=== PATIENT | male | born 1930 | race Caucasian/White ===

== ENCOUNTER → 2016-08-20 | Outpatient (CLI) | payer MEDICARE, BC, OTHER ==
[~2016-08-20] MED LIST: /FELO5TASR PO; ASPI81TA85 PO; AVAP150T PO; AVAP150T31 PO; FELO5TAB3 PO; FLAXOIL PO; GLIM1TAB PO; GLUC500C5 PO; METACAP3 PO; METH1CAP PO; VITAMIN B 12 PO; [UNRECOGNIZED DRUG - CODE] EXT
--- NOTE | 2016-08-20 12:26 | REP ---
Chest two views HISTORY: Coronary artery disease Comparison: 07/03/2016 The lungs are clear. The heart is normal in size. The pulmonary vasculature is normal in appearance. The bony structure is intact. IMPRESSION: No acute disease. Signed by Armando Talbert MD 08/20/2016 12:18 P
== END ==
LOC: M RAD 11:06
PROVIDERS: ATTEND Ophthalmology
DX: I25.10 Atherosclerotic heart disease of native coronary artery without angina pectoris (principal)

== ENCOUNTER → 2016-08-22 | Day surgery (SDC) | payer MEDICARE, BC, OTHER ==
[~2016-08-22] VITALS: Ht 180.3 cm; Wt 77.1 kg
[~2016-08-22] MED LIST changes: +ACETAMINOPHEN 325 MG TAB As Ordered ONE; +ACETAMINOPHEN 325 MG TAB PO PRN; +ACETYLCHOLINE OPHTH SOLN 1% 2ML (MIOCHOL-E) As Ordered ONE; +BALANCED SALT IRRIGATION SOLUTION 500ML BAG (FOR OR EYE MACHINE) As Ordered ONE; +CEFUROXIME 1MG/0.1ML INTRACAMERAL INJ As Ordered ONE; +HEALON DUET (HEALON 10MG/ML 0.55ML & HEALON ENDOCOAT 30MG/ML 0.85ML) As Ordered ONE; +LIDOCAINE 0.75%/EPINEPHRINE 0.025% IN BSS 1ML SYR INTRACAMERAL (OR ONLY) As Ordered ONE; +LR 500 ML IV SCH; +MIDAZOLAM INJ 2 MG/2 ML VIAL (J2250) As Ordered ONE; +OFLOXACIN 0.3 % (OCUFLOX) OPTH SOL 5ML OS ONE; +PHENYLEPHRINE 2.5% OPHTH SOL 2ML OS ONE; +POVIDONE-IODINE 5% OPHTH PREP SOL 30ML As Ordered ONE; +PROPARACAINE 0.5% OPHTH SOL 15ML OS ONE; +TOBRADEX OPHTH OINT 3.5 GM As Ordered ONE; +TRIMETHOBENZAMIDE 300 MG CAP PO PRN; +TROPICAMIDE 1% OPHTH SOLN 2ML OS ONE; +fentaNYL 100 MCG/2 ML INJECTION (J3010) As Ordered ONE
[2016-08-22 11:25] VITALS: BP 181/83
--- NOTE | 2016-08-23 08:01 | RO ---
DATE OF PROCEDURE: 08/22/2016 PREOPERATIVE DIAGNOSIS: Visually significant nuclear sclerotic cataract left eye. POSTOPERATIVE DIAGNOSIS: Visually significant nuclear sclerotic cataract left eye. PROCEDURE: Cataract extraction with use of phacoemulsification, and placement of intraocular lens, AU00T0, 20.0, left eye. SURGEON: Amado Quiles DO MILL STENCILER: ANESTHESIA: Local with monitored anesthesia care (MAC). COMPLICATIONS: None. POSTOPERATIVE CONDITION: Stable. INDICATION FOR SURGERY: Blurred vision left eye affecting patient's activities of daily living. DESCRIPTION OF PROCEDURE: The patient was seen in the preoperative area and properly identified. The correct operative eye was identified and marked. Attention was turned to that eye. The patient received topical antibiotics in the preoperative area. The patient then received topical dilating drops consisting of Tropicamide and Phenylephrine. The patient was then transferred to the operating room. The correct side was re-identified. The patient received topical anesthetics and antibiotics on the surface of the eye. The eye was prepped and draped in a sterile fashion. The upper and lower eyelids were isolated with Tegaderm tape, and the lids were held open with an adjustable speculum. Using a sideport blade, a paracentesis incision was made. Intraocular preservative-free lidocaine was then injected into the anterior chamber. Viscoelastic was then injected into the anterior chamber through the paracentesis. Using a 2.6 mm sharp-tipped keratome, the anterior chamber was entered via a temporal clear corneal incision. A continuous curvilinear capsulorrhexis was created with the aid of a 26g cystotome and utrata forceps. Hydrodissection was performed with balanced salt solution (BSS) on a blunt cannula until the nucleus was freely mobile. The crystalline lens was phacoemulsified and aspirated. Additional cohesive viscoelastic was placed into the capsular bag to deepen it. AU00T0, 20.0 lens was placed into the capsular bag and confirmed by visualizing the continuous curvilinear capsulorrhexis. Additional irrigation and aspiration was used to remove cortical material and remaining viscoelastic. The clear corneal incision was hydrated with BSS on a blunt cannula. The lens was well positioned. Resure sealant was placed on the temporal incision. The incisions were then tested for leaks and found to be negative. The eye was then palpated for appropriate pressure and adjusted accordingly with BSS. The eyelid speculum was carefully removed. A shield was placed on the eye. The patient tolerated the procedure well and was discharged to the recovery unit in a stable condition. RICHELLE
== END | disposition home or self-care (01) ==
LOC: M SDC 08:10
PROVIDERS: ATTEND Ophthalmology
DX: H25.12 Age-related nuclear cataract, left eye (principal); I25.10 Atherosclerotic heart disease of native coronary artery without angina pectoris; I10 Essential (primary) hypertension; E11.9 Type 2 diabetes mellitus without complications; Z79.82 Long term (current) use of aspirin; N40.0 Benign prostatic hyperplasia without lower urinary tract symptoms; Z88.0 Allergy status to penicillin; Z79.899 Other long term (current) drug therapy; M10.9 Gout, unspecified; J44.9 Chronic obstructive pulmonary disease, unspecified; F17.210 Nicotine dependence, cigarettes, uncomplicated
CPT/HCPCS: 66984; J2250; J3010; V2632

== ENCOUNTER → 2016-10-30 | Outpatient (REF) | payer MEDICARE, BC, OTHER ==
[~2016-10-30] MED LIST changes: -ACETAMINOPHEN 325 MG TAB As Ordered ONE; -ACETAMINOPHEN 325 MG TAB PO PRN; -ACETYLCHOLINE OPHTH SOLN 1% 2ML (MIOCHOL-E) As Ordered ONE; -BALANCED SALT IRRIGATION SOLUTION 500ML BAG (FOR OR EYE MACHINE) As Ordered ONE; -CEFUROXIME 1MG/0.1ML INTRACAMERAL INJ As Ordered ONE; +FELO5TAB PO; -FELO5TAB3 PO; -HEALON DUET (HEALON 10MG/ML 0.55ML & HEALON ENDOCOAT 30MG/ML 0.85ML) As Ordered ONE; -LIDOCAINE 0.75%/EPINEPHRINE 0.025% IN BSS 1ML SYR INTRACAMERAL (OR ONLY) As Ordered ONE; -LR 500 ML IV SCH; -MIDAZOLAM INJ 2 MG/2 ML VIAL (J2250) As Ordered ONE; -OFLOXACIN 0.3 % (OCUFLOX) OPTH SOL 5ML OS ONE; -PHENYLEPHRINE 2.5% OPHTH SOL 2ML OS ONE; -POVIDONE-IODINE 5% OPHTH PREP SOL 30ML As Ordered ONE; -PROPARACAINE 0.5% OPHTH SOL 15ML OS ONE; -TOBRADEX OPHTH OINT 3.5 GM As Ordered ONE; -TRIMETHOBENZAMIDE 300 MG CAP PO PRN; -TROPICAMIDE 1% OPHTH SOLN 2ML OS ONE; -fentaNYL 100 MCG/2 ML INJECTION (J3010) As Ordered ONE
[2016-10-30 13:31] LABS: CALCIUM LEVEL 8.8 MG/DL (8.8-10.2); CREATININE FOR GFR 1.41 MG/DL (0.70-1.30); GLOMERULAR FILTRATION RATE 50.9 (>35); POTASSIUM SERUM 4.4 MEQ/L (3.5-5.1)
== END ==
LOC: M LABDRAW1 11:24
PROVIDERS: ATTEND Urology
DX: D41.02 Neoplasm of uncertain behavior of left kidney (principal)

== ENCOUNTER 2017-02-23 18:58 | Inpatient (IN) | payer MEDICARE, BC, OTHER ==
[~2017-02-23] VITALS: Ht 175.3 cm; Wt 78.9 kg
[2017-02-23] MEDS ORDERED: TRAD5TAB PO (19:11)
--- NOTE | 2017-02-23 19:53 | ECGEPIP ---
Stationary ECG Study 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
[2017-02-23] MEDS ORDERED: ONDANSETRON 4MG/2ML VIAL (J2405) IV ONE ×2 (20:45→23:00)
[2017-02-23] MEDS ORDERED: MORPHINE 2 MG/ML 1ML SYRINGE IV ONE ×2 (20:45→23:00)
[2017-02-23 20:50] LABS: BASO # 0.1 10^3/uL (0.0-0.2); BASO % 0.4 % (0.0-1.0); EOS # 0.2 10^3/uL (0.0-0.50); EOS % 1.3 % (0.0-3.0); IMMATURE GRANULOCYTE % 0.4 % (0-0); LYMPH # 1.5 10^3/uL (1.5-4.5); LYMPH % 12.8 % (24.0-44.0); MEAN CORPUSCULAR HGB CONC 32.4 g/dl (32.0-36.5); MEAN CORPUSCULAR VOLUME 89.3 fl (80.0-96.0); MONO # 1.2 10^3/uL (0.0-0.8); MONO % 9.9 % (0.0-5.0); NEUTROPHILS % 75.2 % (36.0-66.0); PLATELET COUNT, AUTOMATED 544 10^3/uL (150-450); RED CELL DISTRIBUTION WIDTH 13.4 % (11.5-14.5); WHITE BLOOD COUNT 11.9 10^3/uL (4.0-10.0)
[2017-02-23 21:00] LABS: INR 1.09
[2017-02-23] MEDS: HumaLOG INSULIN (NovoLOG) PER UNIT SC SCH (21:00)
[2017-02-23 21:04] LABS: ALBUMIN 2.6 GM/DL (3.2-5.2); ALKALINE PHOSPHATASE 87 U/L (45-117); ALT/SGPT 27 U/L (12-78); ANION GAP 3 MEQ/L (8-16); AST/SGOT 16 U/L (7-37); BILIRUBIN,DIRECT < 0.1 MG/DL (0.0-0.2); BILIRUBIN,TOTAL 0.3 MG/DL (0.2-1.0); BLOOD UREA NITROGEN 12 MG/DL (7-18); CALCIUM LEVEL 8.2 MG/DL (8.8-10.2); CARBON DIOXIDE LEVEL 32 MEQ/L (21-32); CHLORIDE LEVEL 99 MEQ/L (98-107); CREATININE FOR GFR 1.57 MG/DL (0.70-1.30); GLOMERULAR FILTRATION RATE 44.9 (>35); GLUCOSE, FASTING 104 MG/DL (83-110); POTASSIUM SERUM 3.7 MEQ/L (3.5-5.1); SODIUM LEVEL 134 MEQ/L (136-145); TOTAL PROTEIN 7.8 GM/DL (6.4-8.2)
[2017-02-23] MEDS ORDERED: ISOVUE-370 76% 100ML VIAL (Q9967) As Ordered ONE (21:09)
[2017-02-23] MEDS ORDERED: CIPROFLOXACIN 400 MG in APPROPRIATE DILUENT 1 EA IV ONE (22:15)
[2017-02-23] MEDS ORDERED: metroNIDAZOLE 500 MG in APPROPRIATE DILUENT 1 EA IV ONE (22:15)
[2017-02-23] MEDS ORDERED: NICOTINE 21MG/24HR 1 EA TRANSDERMAL TD ONE (23:00)
[2017-02-24] MEDS ORDERED: ASPI1TAB PO
[2017-02-24] MEDS: NS 1,000 ML IV SCH ×3 (00:06→22:00)
[2017-02-24] MEDS ORDERED: MORPHINE 2 MG/ML 1ML SYRINGE IV PRN (00:15)
[2017-02-24] MEDS ORDERED: ONDANSETRON 4MG/2ML VIAL (J2405) IV PRN (00:15)
[2017-02-24] MEDS ORDERED: DEXTROSE 50% 50 ML SYRINGE IV PRN (00:15)
[2017-02-24] MEDS ORDERED: ACETAMINOPHEN TAB 650MG DOSE (2X325MG) PO PRN (00:15)
[2017-02-24] MEDS ORDERED: GLUCOSE 4 GM CHEW TABLET PO PRN (00:15)
[2017-02-24] MEDS ORDERED: GLUCAGON FOR INJ 1 MG VIAL (J1610) SC PRN (00:15)
[2017-02-24] MEDS: PERCOCET 5MG/325MG TAB PO PRN ×5 (01:46→22:00)
[2017-02-24 01:50] VITALS: BP 194/80
[2017-02-24 06:00] VITALS: BP 147/67
--- NOTE | 2017-02-24 07:02 | HPE ---
DATE OF ADMISSION: 02/24/2017 PRIMARY CARE PROVIDER: Dr. Miller ATTENDING PHYSICIAN: Denys Leach MD CHIEF COMPLAINT: Sudden onset of left lower quadrant abdominal pain. HISTORY OF PRESENT ILLNESS: The patient is an 86-year-old white male with several chronic medical conditions who presented to the emergency room for evaluation of sudden onset of left lower quadrant abdominal pain. The history is provided by himself, but he is a poor historian. Also his daughter and his is with him in the emergency room today. Per the family, about two weeks ago he developed right upper quadrant abdominal pain. He went to the [facility] and had a test done which showed he had a gallbladder stone with cholecystitis. His primary care physician referred him to see Dr. Tom on 03/05/2017. Since his pain resolved spontaneously, so he is waiting to see Dr. Tom. Today, in the afternoon, sudden he said he developed pain in his left lower quadrant abdomen. The pain is a persistent pain, about 9/10 in severity, no radiation, any movement makes the pain worse, but denies nausea, vomiting, denies diarrhea or rectal bleeding, no fever, and no chills, and decided to come to the emergency room for further evaluation. In the ER, he underwent CT of the abdomen and pelvis, which demonstrated acute sigmoid diverticulitis, IV antibiotic was started. Meanwhile, the medicine service was called for admission. REVIEW OF SYSTEMS: Denies fever. No chills. No headache. No blurry vision. No shortness of breath. No chest pain. No nausea, no vomiting. Positive left lower quadrant abdominal pain. No diarrhea. No tingling, numbness or weakness in the arms and lower extremities. All other systems reviewed and negative. PAST MEDICAL HISTORY: 1. Type 2 diabetes. 2. T cell lymphoma. 3. Coronary artery disease status post stenting. 4. Peripheral vascular disease bilateral lower extremity stenting. 5. Right kidney renal cell carcinoma, status post partial nephrectomy. 6. Hypertension. 7. Dyslipidemia. 8. Chronic obstructive pulmonary disease (COPD). Is not on home oxygen supplementation. 9. Peripheral neuropathy. PAST SURGICAL HISTORY: 1. Right partial nephrectomy for renal cell carcinoma. 2. Bilateral artery surgery. 3. Cardiac stent. 4. Bilateral lower extremity stenting. SOCIAL HISTORY: Tobacco use, which is ongoing. He still smokes a few cigarettes a day. No alcohol abuse. No illicit drug abuse. He lives with his . He is a full code. FAMILY HISTORY: Positive for cancer as well as coronary artery disease. ALLERGIES: 1. PENICILLIN. MEDICATIONS: Reviewed. PHYSICAL EXAMINATION: VITALS: Temperature 97.7, heart rate 86, respiratory rate 16, blood pressure 190/84, oxygen saturation 97% on room air. GENERAL: He is awake, alert and oriented times three, in no acute distress. HEENT: Atraumatic. Pupils equal, round, reactive to light. No jaundice. Extraocular muscles intact. Ears, nose and throat normal. Mouth mucous not dry. NECK: No jugular venous distention (JVD). No bruits. LUNGS: Clear, but decreased breath sounds. No wheezing, no crackles. HEART: S1, S2 regular, no murmurs. ABDOMEN: Soft, bowel sounds positive. Positive tenderness in the left lower quadrant, but no rebound. LOWER EXTREMITIES: No edema in bilateral lower extremities. NEUROLOGIC: Nonfocal. SKIN: No rash. PSYCHOLOGIC: No acute psychosis. DIAGNOSTIC LABORATORY STUDIES: CBC and differential WBC 11.9, hemoglobin and hematocrit 11.9/36.7, platelets 544, sodium 134, potassium 3.7, BUN 12, creatinine 1.5, glucose 104. CT of the abdomen and pelvis reviewed. IMPRESSION: 1. Acute sigmoid diverticulitis. 2. Gallbladder stone with possible cholecystitis. 3. Hypertension. 4. Type 2 diabetes. 5. Coronary artery disease. 6. Chronic kidney disease stage III. PLAN: Patient will be admitted to the medicine floor. Will treat with IV Cipro and Flagyl for acute diverticulitis. Currently he is asymptomatic and he can followup with Dr. Tom as an outpatient. Otherwise, will continue his home medications. Will keep his nothing by mouth and on gentle IV hydration. Will start him on sliding scale for diabetes and heparin will be used for deep vein thrombosis (DVT) prophylaxis.
[2017-02-24 07:06] LABS: BASO % 0.3 % (0.0-1.0); EOS # 0.1 10^3/uL (0.0-0.50); EOS % 0.7 % (0.0-3.0); IMMATURE GRANULOCYTE % 0.6 % (0-0); LYMPH # 1.3 10^3/uL (1.5-4.5); LYMPH % 10.6 % (24.0-44.0); MEAN CORPUSCULAR HEMOGLOBIN 30.6 pg (27.0-33.0); MEAN CORPUSCULAR HGB CONC 34.3 g/dl (32.0-36.5); MEAN CORPUSCULAR VOLUME 89.3 fl (80.0-96.0); MONO % 8.2 % (0.0-5.0); NEUTROPHILS # 9.4 10^3/uL (1.8-7.7); NEUTROPHILS % 79.6 % (36.0-66.0); PLATELET COUNT, AUTOMATED 469 10^3/uL (150-450); RED CELL DISTRIBUTION WIDTH 13.9 % (11.5-14.5); WHITE BLOOD COUNT 11.8 10^3/uL (4.0-10.0)
--- NOTE | 2017-02-24 07:26 | REPUSA ---
CT of the abdomen and pelvis with contrast Clinical statement: Pain. Technique: Multiple axial CT images were obtained from the base of the lungs through the floor of the pelvis utilizing 5 mm axial slices after administration of oral and nonionic intravenous contrast. C oronal and sagittal reconstructions were also obtained. Comparison: 09/28/2011. Findings: Chest: The visualized lung bases are clear. Abdomen: The liver, spleen, pancreas, and adrenal glands are unremarkable. The gallbladder is distend ed with numerous gallstones noted. There is severe gallbladder wall thickening measuring up to 1 cm. Bilateral simple renal cysts are noted. There is a large left posterior pericapsular fluid collection measuring 3.3 x 6.3 cm. The aorta demonstrates severe atherosclerosis with extensive plaque. There i s no evidence of aneurysm or dissection however. There is no evidence of abdominal lymphadenopathy or ascites. Pelvis: There is focal bowel wall thickening in the sigmoid colon consistent with acute sigmoid diver ticulitis. Surrounding inflammation and mesenteric stranding is noted. The urinary bladder is within normal limits. The prostate remained enlarged but stable. There is no evidence of pelvic lymphadenopa thy or ascites. Bones: There are no suspicious osseous abnormalities seen. Severe multilevel degenerative disc diseas e is noted. There is moderate stable bilateral osteoarthritis of the hip joints. Impression: 1. Acute sigmoid diverticulitis. No evidence of abscess or perforation. No evidence of bowel obstruct ion. 2. Cholelithiasis. Gallbladder wall thickening noted. The findings are suspicious for acute/chronic c holecystitis. Ultrasound may be helpful for further evaluation. 3. Large left posterior pericapsular fluid collection, which could represent an old hematoma or serom a. Ultrasound may be helpful for further evaluation. No evidence of hydronephrosis or nephrolithiasis . Numerous bilateral simple renal cysts. 4. Severe atherosclerotic disease of the abdominal aorta. No evidence of aneurysm or dissection. 5. Spondylosis of the lumbar spine. Degenerative changes of the hip joints.
[2017-02-24] MEDS: HumaLOG INSULIN (NovoLOG) PER UNIT SC SCH ×4 (07:30→21:00)
[2017-02-24] MEDS ORDERED: GLIMEPIRIDE 1 MG TABLET PO SCH (07:30)
[2017-02-24 07:49] LABS: ALBUMIN 2.4 GM/DL (3.2-5.2); ALBUMIN/GLOBULIN RATIO 0.51 (1.00-1.93); BILIRUBIN,TOTAL 0.3 MG/DL (0.2-1.0); CREATININE FOR GFR 1.59 MG/DL (0.70-1.30); GLOMERULAR FILTRATION RATE 44.3 (>35); POTASSIUM SERUM 4.1 MEQ/L (3.5-5.1); TOTAL PROTEIN 7.1 GM/DL (6.4-8.2)
[2017-02-24] MEDS: metroNIDAZOLE 500 MG in APPROPRIATE DILUENT 1 EA IV SCH ×2 (08:29→16:05)
[2017-02-24] MEDS: ENOXAPARIN 30 MG/0.3 ML SYR (J1650) SC SCH (08:29)
[2017-02-24] MEDS: ASPIRIN 81 MG ENTERIC TAB PO SCH (08:29)
[2017-02-24] MEDS: IRBESARTAN 150 MG TAB PO SCH (08:29)
[2017-02-24] MEDS ORDERED: LORazepam 0.5 MG TAB PO PRN (10:45)
[2017-02-24] MEDS: NICOTINE 21MG/24HR 1 EA TRANSDERMAL TD SCH (10:53)
[2017-02-24] MEDS: CIPROFLOXACIN 400 MG in APPROPRIATE DILUENT 1 EA IV SCH ×2 (11:30→22:03)
[2017-02-24 22:00] VITALS: BP 162/72
[2017-02-25] MEDS: metroNIDAZOLE 500 MG in APPROPRIATE DILUENT 1 EA IV SCH ×3 (00:27→15:37)
[2017-02-25] MEDS: NS 1,000 ML IV SCH ×2 (05:22→18:11)
[2017-02-25] MEDS: PERCOCET 5MG/325MG TAB PO PRN ×2 (05:22→15:37)
[2017-02-25 06:00] VITALS: BP 167/73
[2017-02-25] MEDS: HumaLOG INSULIN (NovoLOG) PER UNIT SC SCH ×4 (07:30→21:00)
[2017-02-25 08:17] LABS: BASO % 0.4 % (0.0-1.0); EOS # 0.2 10^3/uL (0.0-0.50); EOS % 2.7 % (0.0-3.0); IMMATURE GRANULOCYTE % 0.4 % (0-0); LYMPH # 1.3 10^3/uL (1.5-4.5); LYMPH % 16.6 % (24.0-44.0); MEAN CORPUSCULAR HEMOGLOBIN 29.6 pg (27.0-33.0); MEAN CORPUSCULAR VOLUME 89.6 fl (80.0-96.0); MONO # 0.7 10^3/uL (0.0-0.8); MONO % 9.2 % (0.0-5.0); NEUTROPHILS # 5.3 10^3/uL (1.8-7.7); NEUTROPHILS % 70.7 % (36.0-66.0); PLATELET COUNT, AUTOMATED 410 10^3/uL (150-450); RED CELL DISTRIBUTION WIDTH 13.9 % (11.5-14.5); WHITE BLOOD COUNT 7.5 10^3/uL (4.0-10.0)
[2017-02-25 08:43] LABS: ALBUMIN 2.2 GM/DL (3.2-5.2); ALBUMIN/GLOBULIN RATIO 0.52 (1.00-1.93); BILIRUBIN,TOTAL 0.2 MG/DL (0.2-1.0); CALCIUM LEVEL 7.6 MG/DL (8.8-10.2); CREATININE FOR GFR 1.57 MG/DL (0.70-1.30); GLOMERULAR FILTRATION RATE 44.9 (>35); MAGNESIUM LEVEL 1.9 MG/DL (1.8-2.4); TOTAL PROTEIN 6.4 GM/DL (6.4-8.2)
[2017-02-25] MEDS: NICOTINE 21MG/24HR 1 EA TRANSDERMAL TD SCH (09:21)
[2017-02-25] MEDS: IRBESARTAN 150 MG TAB PO SCH (09:21)
[2017-02-25] MEDS: ENOXAPARIN 30 MG/0.3 ML SYR (J1650) SC SCH (09:22)
[2017-02-25] MEDS: ASPIRIN 81 MG ENTERIC TAB PO SCH (09:22)
[2017-02-25] MEDS: CIPROFLOXACIN 400 MG in APPROPRIATE DILUENT 1 EA IV SCH ×2 (10:32→23:26)
[2017-02-25] MEDS ORDERED: IPRATROPIUM 0.5MG/ALBUTEROL 2.5MG INH SOL UD 3ML (DUONEB)(J7620) NEB PRN (13:15)
--- NOTE | 2017-02-25 13:17 | IPNPDOC ---
Text Note Date of Service The patient was seen on 02/25/17. NOTE Subjective: Patient is an 86 year old male with a PMHx of T Cell lymphoma, HTN, DM2, CAD s/p stent, PVD s/p b/l stent, DLP, COPD, Renal cell CA s/p R nephrectomy, Neuropathy who presented to the ER with complaints of LLQ abdominal pain. Patient recently had RUQ pain that was found to be 22/ cholecystitis, he was referred to Dr. Tom. He received a CT in the ER that revealed he had sigmoid diverticulitis. He was admitted to the hospitalist service and IV antibiotics were started. Patient was seen and examined at the bedside. Currently he notes that the pain is better controlled, although still present. He denies any nausea or vomiting. We will advance his diet today and see how he is tolerating it throughout the day. Objective: Vitals (See below) General: Lying in bed, no acute distress, comfortable, AAOx3 HEENT: NC, AT CVS: RRR, +S1S2 Lungs: Fair air entry b/l, -w/r/r Abdomen: Soft, ND, Mild tenderness at LLQ Extremities: - Edema, - Calf tenderness Assessment and plan: LLQ pain - likely 2/2 sigmoid diverticulitis - Presented with acute abdominal pain - Clinically has improvement in pain, although tenderness still persists - WBC count improved; Remains afebrile - CT abdomen / pelvis 02/23: acute sigmoid diverticulitis, no abscess / perforation, cholelithiasis, GB wall thickening, acute / chronic cholecystitis - c/w Ciprofloxacin and Flagyl (Day #2) - Will advance diet - c/w Pain control medications for symptomatic relief s/p RUQ pain - likely 2/2 chronic cholecystitis - Has outpatient follow up with Dr. Tom for cholecystectomy T Cell lymphoma HTN - c/w Irbesartan DM2 - c/w ISS CAD s/p stent - c/w ASA PVD s/p b/l stent - c/w ASA DLP - not on any medications COPD - no evidence of exacerbation - will start duoneb PRN Nicotine dependence - c/w Nicotine patch Renal cell CA s/p R nephrectomy Neuropathy DVT prophylaxis - c/w Lovenox VS,Fishbone, I+O VS, Fishbone, I+O Laboratory Tests 02/25/17 08:02 Red Blood Count 3.28 L, Mean Corpuscular Volume 89.6, Mean Corpuscular Hemoglobin 29.6, Mean Corpuscular Hemoglobin Concent 33.0, Red Cell Distribution Width 13.9, Neutrophils (%) (Auto) 70.7 H, Lymphocytes (%) (Auto) 16.6 L, Monocytes (%) (Auto) 9.2 H, Eosinophils (%) (Auto) 2.7, Basophils (%) ( Auto) 0.4, Neutrophils # (Auto) 5.3, Lymphocytes # (Auto) 1.3 L, Monocytes # ( Auto) 0.7, Eosinophils # (Auto) 0.2, Basophils # (Auto) 0.0, Calcium Level 7.6 L , Aspartate Amino Transf (AST/SGOT) 13, Alanine Aminotransferase (ALT/SGPT) 19, Alkaline Phosphatase 66, Total Bilirubin 0.2, Total Protein 6.4, Albumin 2.2 L Vital Signs Date Time Temp Pulse Resp B/P (MAP) Pulse Ox O2 Delivery O2 Flow Rate FiO2 02/25/17 09:21 167/73 02/25/17 06:00 97.7 68 20 99 Room Air I&O- Last 24 Hours up to 6 AM 02/26/17 06:00 Intake Total 1700 ml Balance 1700 ml LINDA CLINTON MD Feb 25, 2017 13:17
[2017-02-25 14:00] VITALS: BP 147/73
[2017-02-25 22:00] VITALS: BP 161/66
[2017-02-26] MEDS: metroNIDAZOLE 500 MG in APPROPRIATE DILUENT 1 EA IV SCH ×2 (00:31→09:52)
[2017-02-26] MEDS: NS 1,000 ML IV SCH ×2 (02:06→11:58)
[2017-02-26] MEDS ORDERED: amLODIPine 5 MG TAB PO ONE (05:30)
[2017-02-26 06:00] VITALS: BP 185/85
[2017-02-26 06:34] VITALS: BP 176/78
--- NOTE | 2017-02-26 06:49 | ECGEPIP ---
Stationary ECG Study [facility] Test Date: 2017-02-26 Pat Name: KIRK RENTERIA Department: Room: [place] [address] Gender: M Montessori Toddler Teacher: LOWELL : 1930 Requested By: GLADYS Rico Order Number: [id number] Reading MD: Binh Hidalgo Measurements Intervals [place] Rate: 69 P: 44 SC: 243 QRS: -9 QRSD: 115 T: 40 QT: 410 QTc: 442 Interpretive Statements SINUS RHYTHM WITH FIRST DEGREE AV BLOCK MODERATE INTRAVENTRICULAR CONDUCTION DELAY Nonspecific ST-T wave abnormalities Electronically Signed On 02-26-2017 6:49:04 EST by Binh Hidalgo
[2017-02-26 06:57] LABS: BASO # 0.1 10^3/uL (0.0-0.2); EOS # 0.1 10^3/uL (0.0-0.50); EOS % 2.3 % (0.0-3.0); IMMATURE GRANULOCYTE % 0.5 % (0-0); LYMPH # 1.2 10^3/uL (1.5-4.5); LYMPH % 18.8 % (24.0-44.0); MEAN CORPUSCULAR HGB CONC 32.9 g/dl (32.0-36.5); MONO # 0.5 10^3/uL (0.0-0.8); MONO % 8.7 % (0.0-5.0); NEUTROPHILS # 4.3 10^3/uL (1.8-7.7); NEUTROPHILS % 68.7 % (36.0-66.0); PLATELET COUNT, AUTOMATED 461 10^3/uL (150-450); RED CELL DISTRIBUTION WIDTH 13.8 % (11.5-14.5); WHITE BLOOD COUNT 6.2 10^3/uL (4.0-10.0)
[2017-02-26 07:08] LABS: ALBUMIN 2.3 GM/DL (3.2-5.2); ALBUMIN/GLOBULIN RATIO 0.48 (1.00-1.93); BILIRUBIN,TOTAL 0.2 MG/DL (0.2-1.0); CALCIUM LEVEL 7.7 MG/DL (8.8-10.2); CREATININE FOR GFR 1.63 MG/DL (0.70-1.30); POTASSIUM SERUM 3.9 MEQ/L (3.5-5.1); TOTAL PROTEIN 7.1 GM/DL (6.4-8.2)
[2017-02-26] MEDS: HumaLOG INSULIN (NovoLOG) PER UNIT SC SCH ×2 (07:30→11:57)
[2017-02-26] MEDS ORDERED: CIPR500T19 PO (08:20)
[2017-02-26] MEDS ORDERED: FLAG500T PO (08:20)
[2017-02-26] MEDS ORDERED: amLODIPine 10 MG TAB PO SCH (09:00)
[2017-02-26] MEDS: NICOTINE 21MG/24HR 1 EA TRANSDERMAL TD SCH (09:52)
[2017-02-26] MEDS: IRBESARTAN 150 MG TAB PO SCH (09:53)
[2017-02-26] MEDS: ASPIRIN 81 MG ENTERIC TAB PO SCH (09:53)
[2017-02-26 09:54] VITALS: BP 155/76
[2017-02-26] MEDS: ENOXAPARIN 30 MG/0.3 ML SYR (J1650) SC SCH (09:54)
[2017-02-26] MEDS: CIPROFLOXACIN 400 MG in APPROPRIATE DILUENT 1 EA IV SCH (11:00)
--- NOTE | 2017-02-26 16:23 | DSES ---
DATE OF ADMISSION: 02/24/2017 DATE OF DISCHARGE: 02/26/2017 ATTENDING PHYSICIAN: Jefferson Lema MD / Denys Leach MD PRIMARY CARE PHYSICIAN: Dr. Miller / Dr. Jordan Lema REFERRING PHYSICIAN: None. CONSULTING PHYSICIAN: None. CONDITION ON DISCHARGE: Stable. FINAL DIAGNOSIS: Acute diverticulitis. PROCEDURES: None. HISTORY OF PRESENT ILLNESS: The patient is an 86-year-old male with a past medical history of T-cell lymphoma, hypertension, diabetes mellitus type 2, coronary artery disease status post stent, peripheral vascular disease status post bilateral stents, dyslipidemia, chronic obstructive pulmonary disease (COPD), renal cell carcinoma status post right nephrectomy and neuropathy, who presented to the emergency room with complaints of left lower quadrant abdominal pain. The patient originally had right upper quadrant abdominal pain found to be secondary to cholecystitis. He was referred to Dr. Tom. In the emergency room, patient received a CT scan that revealed that he had sigmoid diverticulitis. He was admitted to the hospitalist service for IV antibiotics. HOSPITAL COURSE: 1. Left lower quadrant abdominal pain, likely secondary to sigmoid diverticulitis. Presented with acute abdominal pain. Clinically, he has improvement in his pain, although the tenderness was there initially, his abdominal pain has resolved throughout the hospital course. His white blood cell count has improved. He has remained afebrile. CT of the abdomen and pelvis, done on 02/23/2017, revealed acute sigmoid diverticulitis, no abscess or perforation, cholelithiasis was present, gallbladder wall thickening was noted suggestive of acute/chronic cholecystitis. Patient does not have any right upper quadrant pain on physical exam. Patient was put on Cipro and Flagyl, today marked day #3, he will be continued with these medications as an outpatient for completion of antibiotic course. Patient's diet has been advanced fully and he has not been having any nausea, vomiting, or diarrhea. Patient's pain medications were initially instituted, but have not been required throughout the hospital course. 2. Status post right upper quadrant pain, likely secondary to chronic cholecystitis. Has outpatient followup with Dr. Tom for a cholecystectomy. 3. T cell lymphoma. 4. Hypertension. Continue with irbesartan. 5. Diabetes mellitus type 2. Continue with sliding scale. 6. Coronary artery disease status post stent. Continue with aspirin. 7. Peripheral vascular disease status post bilateral stents. Continue with aspirin. 8. Dyslipidemia. Not on any medication. 9. COPD. No evidence of exacerbation. Continue with DuoNeb as needed. 10. Nicotine dependence. Continue with nicotine patch. 11. Renal cell carcinoma status post right nephrectomy. 12. Neuropathy. 13. Deep venous thrombosis (DVT) prophylaxis. Continue with Lovenox. DISCHARGE MEDICATIONS: Patient has been discharged home with the following medication list: - ciprofloxacin 500 mg by mouth twice a day for the remainder of antibiotic course - metronidazole 500 mg by mouth every 8 hours for the remainder of antibiotic course - aspirin 162 mg by mouth daily - felodipine 5 mg by mouth nightly - glimepiride 1 mg by mouth daily - irbesartan 150 mg by mouth daily - linagliptin 5 mg by mouth every evening - Metanx one capsule by mouth every evening DISCHARGE INSTRUCTIONS: Patient has been advised to followup with his primary care provider who is Dr. Miller / Dr. Jordan Lema within the next 7 days. He has been advised to remain compliant with treatment plan and medications and to return to the emergency room if he experiences any problems. He has been advised to followup with his surgeon, Dr. Tom, within the next 7 days. TIME SPENT ON DISCHARGE: Greater than 35 minutes.
== END 2017-02-26 12:48 | disposition home or self-care (01) | DRG 392 ==
LOC: M ED 18:58 → M ED INP 02-24 00:06 → M MS5PR 02-24 01:50
PROVIDERS: ADMIT Hospitalist; ATTEND Internal Medicine
DX: K57.32 Diverticulitis of large intestine without perforation or abscess without bleeding (principal); K80.10 Calculus of gallbladder with chronic cholecystitis without obstruction; C91.50 Adult T-cell lymphoma/leukemia (HTLV-1-associated) not having achieved remission; I12.9 Hypertensive chronic kidney disease with stage 1 through stage 4 chronic kidney disease, or unspecified chronic kidney disease; N18.3 Chronic kidney disease, stage 3 (moderate); E11.9 Type 2 diabetes mellitus without complications; I73.9 Peripheral vascular disease, unspecified; E78.5 Hyperlipidemia, unspecified; J44.9 Chronic obstructive pulmonary disease, unspecified; F17.210 Nicotine dependence, cigarettes, uncomplicated; Z79.899 Other long term (current) drug therapy; Z79.82 Long term (current) use of aspirin; Z85.528 Personal history of other malignant neoplasm of kidney; G62.9 Polyneuropathy, unspecified

== ENCOUNTER → 2017-05-06 | Outpatient (REF) | payer MEDICARE, OTHER ==
[2017-05-06 13:16] LABS: ANION GAP 2 MEQ/L (8-16); BLOOD UREA NITROGEN 23 MG/DL (7-18); CALCIUM LEVEL 8.5 MG/DL (8.8-10.2); CARBON DIOXIDE LEVEL 32 MEQ/L (21-32); CHLORIDE LEVEL 103 MEQ/L (98-107); CREATININE FOR GFR 1.55 MG/DL (0.70-1.30); GLOMERULAR FILTRATION RATE 45.6 (>35); GLUCOSE, FASTING 131 MG/DL (70-100); POTASSIUM SERUM 4.6 MEQ/L (3.5-5.1); SODIUM LEVEL 137 MEQ/L (136-145)
== END ==
LOC: M LABDRAW1 12:14
DX: D41.02 Neoplasm of uncertain behavior of left kidney (principal)
CPT/HCPCS: 80048

== ENCOUNTER → 2017-09-17 | Outpatient (REF) | payer MEDICARE, OTHER | LOC: M LAB REF 16:50 | DX: L08.9 Local infection of the skin and subcutaneous tissue, unspecified (principal) | CPT/HCPCS: 87070 ==

== ENCOUNTER 2017-09-21 02:37 | Observation (INO) | payer MEDICARE, BC, OTHER ==
[2017-09-21] MEDS: ONDANSETRON 4MG/2ML VIAL (J2405) IV (03:15)
[2017-09-21] MEDS: NS 500 ML IV (03:15)
[2017-09-21 03:29] LABS: BASO % 0.3 % (0.0-1.0); EOS # 0.1 10^3/uL (0.0-0.50); EOS % 0.5 % (0.0-3.0); HEMATOCRIT 35.3 % (42.0-52.0); IMMATURE GRANULOCYTE % 0.4 % (0-3.0); LYMPH # 0.3 10^3/uL (1.5-4.5); MEAN CORPUSCULAR HEMOGLOBIN 30.8 pg (27.0-33.0); MEAN CORPUSCULAR VOLUME 90.7 fl (80.0-96.0); MONO # 0.4 10^3/uL (0.0-0.8); MONO % 4.6 % (0.0-5.0); NEUTROPHILS # 8.8 10^3/uL (1.8-7.7); NEUTROPHILS % 91.2 % (36.0-66.0); PLATELET COUNT, AUTOMATED 272 10^3/uL (150-450); RED BLOOD COUNT 3.89 10^6/uL (4.30-6.10); RED CELL DISTRIBUTION WIDTH 13.6 % (11.5-14.5); WHITE BLOOD COUNT 9.6 10^3/uL (4.0-10.0)
[2017-09-21] MEDS: fentaNYL 100 MCG/2 ML INJECTION (J3010) IV (03:35)
[2017-09-21 03:48] LABS: POSITIVE DIFF POS FLAG
[2017-09-21 03:50] LABS: PROTHROMBIN TIME 13.3 SECONDS (12.1-14.4)
[2017-09-21 03:51] LABS: PARTIAL THROMBOPLASTIN TIME 36.4 SECONDS (25.4-37.6)
[2017-09-21 03:52] LABS: LACTIC ACID SEPSIS PROTOCOL 1.2 MMOL/L (0.4-2.0)
[2017-09-21 03:54] LABS: ALBUMIN 3.1 GM/DL (3.2-5.2); ALKALINE PHOSPHATASE 86 U/L (45-117); ALT/SGPT 30 U/L (12-78); ANION GAP 9 MEQ/L (8-16); AST/SGOT 21 U/L (7-37); BILIRUBIN,DIRECT 0.1 MG/DL (0.0-0.2); BILIRUBIN,TOTAL 0.4 MG/DL (0.2-1.0); BLOOD UREA NITROGEN 32 MG/DL (7-18); CALCIUM LEVEL 7.4 MG/DL (8.8-10.2); CARBON DIOXIDE LEVEL 23 MEQ/L (21-32); CHLORIDE LEVEL 106 MEQ/L (98-107); CK-MB VALUE MASS 3.2 NG/ML (<3.6); CPK CREATINE PHOSPHOKINASE 286 U/L (39-308); CREATININE FOR GFR 2.15 MG/DL (0.70-1.30); GLOMERULAR FILTRATION RATE 31.3 (>35); GLUCOSE, FASTING 145 MG/DL (70-100); LIPASE 188 U/L (73-393); MB/CK RELATIVE INDEX 1.11 (< OR =4); POTASSIUM SERUM 3.6 MEQ/L (3.5-5.1); SODIUM LEVEL 138 MEQ/L (136-145); TOTAL PROTEIN 7.5 GM/DL (6.4-8.2); TROPONIN I 0.02 NG/ML (< 0.10)
[2017-09-21] MEDS: NS 1,000 ML IV ×3 (07:00→17:12)
[2017-09-21] MEDS: HYDROMORPHONE HCL 0.5 MG/ 0.5 ML SYRINGE (J1170 PER 1) IV ×2 (07:06→08:12)
[2017-09-21 08:45] LABS: CK-MB VALUE MASS 3.1 NG/ML (<3.6); CPK CREATINE PHOSPHOKINASE 233 U/L (39-308); MB/CK RELATIVE INDEX 1.33 (< OR =4); TROPONIN I 0.05 NG/ML (< 0.10)
[2017-09-21 12:49] LABS: ANION GAP 7 MEQ/L (8-16); BLOOD UREA NITROGEN 30 MG/DL (7-18); CALCIUM LEVEL 7.1 MG/DL (8.8-10.2); CARBON DIOXIDE LEVEL 24 MEQ/L (21-32); CHLORIDE LEVEL 109 MEQ/L (98-107); CREATININE FOR GFR 2.08 MG/DL (0.70-1.30); GLOMERULAR FILTRATION RATE 32.5 (>35); GLUCOSE, FASTING 157 MG/DL (70-100); POTASSIUM SERUM 4.2 MEQ/L (3.5-5.1); SODIUM LEVEL 140 MEQ/L (136-145)
[2017-09-21] MEDS ORDERED: ONDANSETRON 4MG/2ML VIAL (J2405) IV (13:30)
[2017-09-21] MEDS ORDERED: ACETAMINOPHEN TAB 650MG DOSE (2X325MG) PO (13:30)
[2017-09-21] MEDS ORDERED: GLUCAGON FOR INJ 1 MG VIAL (J1610) SC (13:30)
[2017-09-21] MEDS ORDERED: PERCOCET 5MG/325MG TAB PO (13:30)
[2017-09-21] MEDS ORDERED: DEXTROSE 50% 50 ML SYRINGE IV (13:30)
[2017-09-21] MEDS ORDERED: GLUCOSE 4 GM CHEW TABLET PO (13:30)
[2017-09-21] MEDS: SENOKOT S TAB PO (14:00)
[2017-09-21 14:31] LABS: BEDSIDE GLUCOSE 156 MG/DL (83-110)
[2017-09-21] MEDS: PERCOCET 5MG/325MG TAB PO (15:39)
[2017-09-21] MEDS: LORazepam 0.5 MG TAB PO (16:10)
[2017-09-21] MEDS: IPRATROPIUM 0.5MG/ALBUTEROL 2.5MG INH SOL UD 3ML (DUONEB)(J7620) NEB (16:13)
[2017-09-21 16:43] LABS: TROPONIN I 0.49 NG/ML (< 0.10)
[2017-09-21 16:44] LABS: CK-MB VALUE MASS 5.6 NG/ML (<3.6); CPK CREATINE PHOSPHOKINASE 268 U/L (39-308); MB/CK RELATIVE INDEX 2.08 (< OR =4)
[2017-09-21] MEDS: ASPIRIN 81 MG ENTERIC TAB PO (17:07)
[2017-09-21] MEDS: amLODIPine 5 MG TAB PO (17:10)
[2017-09-21] MEDS: HEPARIN SOD (PORCINE) 5000 UNITS/ML VIAL SC (17:10)
[2017-09-21] MEDS ORDERED: NITROGLYCERIN 0.4 MG SUBL TABLET SL (18:00)
[2017-09-21] MEDS ORDERED: HEPARIN SOD (PORCINE) 5000 UNITS/ML VIAL IV (18:00)
[2017-09-21 18:26] LABS: PARTIAL THROMBOPLASTIN TIME 39.5 SECONDS (25.4-37.6)
[2017-09-21] MEDS: HEPARIN DRIP 25,000 UNITS in APPROPRIATE DILUENT 1 EA IV (18:28)
[2017-09-21 18:31] LABS: BEDSIDE GLUCOSE 224 MG/DL (83-110)
[2017-09-21] MEDS: HumaLOG INSULIN (NovoLOG) PER UNIT SC (18:41)
[2017-09-21] MEDS ORDERED: HumaLOG INSULIN (NovoLOG) PER UNIT SC (21:00)
== END 2017-09-21 19:31 | disposition other institution (70) ==
LOC: M ED 02:37 → M ED INP 13:30 → M MSPAV 15:52
DX: R07.9 Chest pain, unspecified (principal); I25.10 Atherosclerotic heart disease of native coronary artery without angina pectoris; Z98.61 Coronary angioplasty status; J44.9 Chronic obstructive pulmonary disease, unspecified; Z85.72 Personal history of non-Hodgkin lymphomas; I10 Essential (primary) hypertension; E78.5 Hyperlipidemia, unspecified; E11.9 Type 2 diabetes mellitus without complications; Z85.528 Personal history of other malignant neoplasm of kidney; Z79.82 Long term (current) use of aspirin; Z79.899 Other long term (current) drug therapy
CPT/HCPCS: J2405

== ENCOUNTER 2018-10-02 22:12 | Emergency (ER) | payer MEDICARE, OTHER ==
[~2018-10-02] VITALS: Ht 180.3 cm; Wt 77.7 kg
[~2018-10-02 22:12] MED LIST changes: -/FELO5TASR PO; +ASPI81TA26 PO; +CIPR500T19 PO; +FELO1TAB12 PO; +FLAG500T PO; +IRBE150T12; +NITR4TASL SL; +TRAD5TAB PO; +[UNRECOGNIZED DRUG - CODE]; +[UNRECOGNIZED DRUG - CODE] EXT; -[UNRECOGNIZED DRUG - CODE] EXT
[2018-10-02] MEDS ORDERED: TRAD5TAB (22:23)
[2018-10-02] MEDS ORDERED: FERR325T3 PO (22:23)
[2018-10-02] MEDS ORDERED: FELO5TAB (22:23)
[2018-10-02] MEDS ORDERED: GLIM1TAB (22:23)
[2018-10-02] MEDS ORDERED: LABE10TAB (22:23)
[2018-10-02] MEDS ORDERED: CLOP75TA2 (22:23)
[2018-10-02] MEDS ORDERED: QUET1TAB7 (22:23)
[2018-10-02] MEDS ORDERED: BUSP5TA (22:23)
[2018-10-02] MEDS ORDERED: NITR0.4D6 (22:23)
[2018-10-02] MEDS ORDERED: FURO20TA2 (22:23)
[2018-10-02] MEDS ORDERED: ATOR1TAB21 (22:23)
[2018-10-02] MEDS ORDERED: METO1TAB7 (22:23)
[2018-10-02 23:19] LABS: BASO # 0.1 10^3/uL (0.0-0.2); BASO % 0.7 % (0.0-1.0); EOS # 0.3 10^3/uL (0.0-0.50); EOS % 3.8 % (0.0-3.0); HEMATOCRIT 37.2 % (42.0-52.0); HEMOGLOBIN 12.2 g/dl (13.5-17.5); LYMPH # 1.1 10^3/uL (1.5-4.5); LYMPH % 14.8 % (24.0-44.0); MEAN CORPUSCULAR HEMOGLOBIN 31.1 pg (27.0-33.0); MEAN CORPUSCULAR HGB CONC 32.8 g/dl (32.0-36.5); MEAN CORPUSCULAR VOLUME 94.9 fl (80.0-96.0); MONO # 0.9 10^3/uL (0.0-0.8); NEUTROPHILS # 4.8 10^3/uL (1.8-7.7); NEUTROPHILS % 67.4 % (36.0-66.0); PLATELET COUNT, AUTOMATED 251 10^3/uL (150-450); RED BLOOD COUNT 3.92 10^6/uL (4.30-6.10); WHITE BLOOD COUNT 7.2 10^3/uL (4.0-10.0)
[2018-10-02 23:48] LABS: ALBUMIN 3.2 GM/DL (3.2-5.2); BILIRUBIN,DIRECT 0.1 MG/DL (0.0-0.2); BILIRUBIN,TOTAL 0.2 MG/DL (0.2-1.0); CREATININE FOR GFR 1.98 MG/DL (0.70-1.30); GLOMERULAR FILTRATION RATE 34.3 (>35)
--- NOTE | 2018-10-03 00:33 | REPVR ---
EXAM: CT Abdomen and Pelvis Without Contrast EXAM DATE/TIME: 10/02/2018 11:06 PM CLINICAL HISTORY: 87 years old, male; Abdominal pain; Flank; Left; Additional info: Left sided flank pain TECHNIQUE: Imaging protocol: Axial computed tomography images of the abdomen and pelvis without contrast. Coronal and sagittal reformatted images were created and reviewed. Radiation optimization: All CT scans at this facility use at least one of these dose optimization techniques: automated exposure control; mA and/or kV adjustment per patient size (includes targeted exams where dose is matched to clinical indication); or iterative reconstruction. COMPARISON: CT ABD PELVIS W/O CONTRAST 09/21/2017 3:05 PM FINDINGS: Lungs: No suspicious mass or airspace process in the visualized lung bases. Liver: Noncontrast liver shows no obvious lesion. Gallbladder and bile ducts: Multiple gallstones are seen within the lumen of the gallbladder. No bile duct dilatation.Noncontrast pancreas shows no obvious mass or adjacent fluid. Pancreas: Normal. No ductal dilation. Spleen: Noncontrast spleen shows no obvious focal deformity. Adrenals: Stable 17 mm right adrenal adenoma with fat density. Left adrenal is normal in size. Kidneys and ureters: Kidneys demonstrate no obstructive uropathy. Multiple right side renal cysts with simple fluid density measuring up to 4.2 cm. Left renal midpole cyst simple fluid density measuring 18 mm. Upper pole exophytic left renal lesion measuring 3.5 cm, probably organizing subcapsular hematoma given the appearance on 02/23/2017, essentially identical. Stomach and bowel: No evidence of small bowel obstruction. Diverticular changes are present within the colon without inflammation. Moderate pattern of colonic stool is present. Appendix: No evidence of appendicitis. Intraperitoneal space: No pneumoperitoneum. Vasculature: Atherosclerotic change present in the aorta, without aneurysm. Lymph nodes: No enlarged lymph nodes. Bladder: Bladder appears normal. Reproductive: Prostate gland is diffusely enlarged. Bones/joints: Degenerative changes are seen in the lumbar spine with disc height loss, endplate osteophytes and hypertrophic facet arthropathy. Bilateral hip joint degenerative osteoarthrosis changes. Soft tissues: Unremarkable. Other findings: Limited evaluation without enteric or IV contrast. IMPRESSION: 1. No explanation for acute left flank pain. 2. Cholelithiasis without biliary obstruction. 3. Colonic diverticula changes without evidence of active inflammation. 4. Bilateral renal simple fluid density cysts and probable subcapsular hematoma, left kidney, unchanged in appearance since February 2017 Electronically signed by: Russell Soto On 10/03/2018 00:32:53 AM
[2018-10-03 01:30] VITALS: BP 180/81
[2018-10-03] MEDS ORDERED: DICY1CAP8 PO (01:37)
[2018-10-03] MEDS ORDERED: DICYCLOMINE 10 MG CAP PO ONE (01:45)
== END 2018-10-03 01:51 | disposition home or self-care (01) ==
LOC: M ED 22:12
DX: R10.32 Left lower quadrant pain (principal); E11.9 Type 2 diabetes mellitus without complications; I50.9 Heart failure, unspecified; J44.9 Chronic obstructive pulmonary disease, unspecified; F03.90 Unspecified dementia, unspecified severity, without behavioral disturbance, psychotic disturbance, mood disturbance, and anxiety; C85.90 Non-Hodgkin lymphoma, unspecified, unspecified site; Z79.899 Other long term (current) drug therapy; Z79.84 Long term (current) use of oral hypoglycemic drugs; Z79.82 Long term (current) use of aspirin; Z88.0 Allergy status to penicillin; F17.210 Nicotine dependence, cigarettes, uncomplicated

== ENCOUNTER → 2019-03-23 | Outpatient (REF) | payer MEDICARE, OTHER ==
[~2019-03-23] MED LIST changes: +ATOR1TAB21; +BUSP5TA; +CLOP75TA2; +DICY1CAP8 PO; -FELO5TAB PO; +FELO5TAB26; +FELO5TAB26 PO; +FERR325T3 PO; +FURO20TA2; -GLIM1TAB PO; +GLIM1TAB4; +GLIM1TAB4 PO; +LABE10TAB; +METO1TAB7; +NITR0.4D6; +QUET1TAB7; +TRAD5TAB
[2019-03-23 19:50] LABS: FREE T4 0.91 NG/DL (0.76-1.46)
[2019-03-23 19:51] LABS: TOTAL T3 116.4 NG/DL (60.0-181.0); VITAMIN B12 LEVEL 921 PG/ML
[2019-03-23 19:52] LABS: FOLATE > 24.0 NG/ML
== END ==
LOC: M LAB REF 17:11
PROVIDERS: ATTEND Nurse Practitioner Family
DX: D51.0 Vitamin B12 deficiency anemia due to intrinsic factor deficiency (principal); R53.83 Other fatigue

== ENCOUNTER → 2019-09-15 | Outpatient (REF) | payer MEDICARE, OTHER ==
[~2019-09-15] MED LIST changes: +ASPI81TA86 PO; -IRBE150T12; +IRBE150T7
[2019-09-15 18:30] LABS: CHOLESTEROL RISK RATIO 3.8 (<5)
== END ==
LOC: M LAB REF 17:55
PROVIDERS: ATTEND Internal Medicine Cardiovascular Disease
DX: E78.5 Hyperlipidemia, unspecified (principal); Z79.899 Other long term (current) drug therapy